=== PATIENT | male | born 1940 | race Caucasian/White ===

== ENCOUNTER 2018-01-12 06:34 | Day surgery (SDC) | payer OTHER ==
[2018-01-12] MEDS ORDERED: SIMETHICONE 40MG/0.6ML DROPS 30ML As Ordered (06:58)
[2018-01-12] MEDS ORDERED: NS 1,000 ML IV (07:45)
[2018-01-12] MEDS ORDERED: LIDOCAINE 2% INJ 100 MG/5 ML SDV (FOR ANES.) As Ordered (07:50)
[2018-01-12] MEDS ORDERED: PROPOFOL 200 MG/20 ML VIAL As Ordered ×3 (07:50)
== END 2018-01-12 08:30 | disposition home or self-care (01) ==
LOC: M OPP 06:34
DX: Z12.11 Encounter for screening for malignant neoplasm of colon (principal); Z86.010 Personal history of colon polyps; K57.30 Diverticulosis of large intestine without perforation or abscess without bleeding; K64.8 Other hemorrhoids
CPT/HCPCS: G0105

== ENCOUNTER → 2018-03-18 | Outpatient (CLI) | payer MEDICARE ==
[~2018-03-18] MED LIST: /AUGM875TA; AMLO10TA5 PO; ANTI50TA; ASPI1TAB PO; ATEN50TA2 PO; BABY81CH; BENA20TA8 PO; MIRA3350 PO; NIAC500T; PRAV40TA2 PO; SIMV80TA; TENO50TA
[2018-03-18 18:03] LABS: CALCIUM LEVEL 9.5 MG/DL (8.8-10.2); CREATININE FOR GFR 1.33 MG/DL (0.70-1.30); GLOMERULAR FILTRATION RATE 55.8 (>42); POTASSIUM SERUM 4.6 MEQ/L (3.5-5.1)
[2018-03-18 18:47] LABS: APPEARANCE, URINE CLEAR (CLEAR); BACTERIA, URINE AUTO NEGATIVE (NEGATIVE); BILIRUBIN, URINE AUTO NEGATIVE (NEGATIVE); BLOOD, URINE BLOOD NEGATIVE (NEGATIVE); COLOR, URINE YELLOW (YELLOW); GLUCOSE, URINE (UA) AUTO NEGATIVE (NEGATIVE); KETONE, URINE AUTO NEGATIVE (NEGATIVE); LEUKOCYTE ESTERASE, URINE AUTO NEGATIVE (NEGATIVE); NITRITE, URINE AUTO NEGATIVE (NEGATIVE); PROTEIN, URINE AUTO NEGATIVE (NEGATIVE); RBC, URINE AUTO 1 /HPF (0-3); SPECIFIC GRAVITY URINE AUTO 1.014 (1.002-1.035); SQUAMOUS EPITHELIAL CELL UR AU 0 /HPF (0-6); UROBILINOGEN, URINE AUTO 0.2 mg/dL (0.0-2.0); WBC, URINE AUTO 0 /HPF (0-3)
== END ==
LOC: M SMT 15:06
PROVIDERS: ATTEND Nurse Practitioner Family
DX: R31.0 Gross hematuria (principal)
CPT/HCPCS: 36415; 80048; 81001; 87086; 88108; G0463

== ENCOUNTER → 2018-03-26 | Outpatient (CLI) | payer MEDICARE ==
[~2018-03-26] MED LIST changes: +ISOVUE-370 76% 100ML VIAL (Q9967) As Ordered ONE
--- NOTE | 2018-03-26 10:47 | REP ---
CT UROGRAPHY WITHOUT AND WITH IV CONTRAST: HISTORY: Gross hematuria. No comparison study. CT CONTRAST DOSE: 100 mL of intravenous Isovue [address] FINDINGS: Preliminary digital consumer loan manager radiograph demonstrates a normal bowel gas pattern. The lung base demonstrates mild bibasilar interstitial fibrosis. Lung zimmerman are otherwise clear in the bases. No pleural effusion or upper abdominal ascites seen. The liver and spleen are normal in size homogeneous in texture. There are bilateral renal cysts noted. There is a small lower pole cyst in the left kidney measuring 13 mm in diameter. There are two cysts in the right kidney. In the upper pole there is a simple cyst measuring 4.6 cm in diameter. In the lower pole contains a large simple cyst which measures 12.8 x 12.0 x 10.0 cm. No abnormal cyst wall calcification or enhancement is seen in any of these. There is no evidence of hydronephrosis or intrarenal calculus on either side. No retroperitoneal mass or adenopathy is seen. No pancreatic abnormality is noted. No abnormalities noted in the gallbladder. Small and large intestinal bowel loops are normal in the upper abdomen. The appendix is surgically absent. The prostate is moderately enlarged and there is mild diffuse bladder wall thickening. No bladder mass lesion is evident. No pelvic adenopathy is observed. No abdominal wall defect is seen. Bone window settings show no bony destructive lesion. Three-dimensional CT urography reconstructed images show no abnormality. No filling defect is seen in the collecting system of either kidney on delayed scan images. The ureters describe a normal course to the bladder. IMPRESSION: Multiple renal cysts including a very large cyst in the lower pole right kidney as described above. Enlarged prostate. Mild bladder wall thickening. Otherwise negative. Electronically Signed by Kirill Adair MD 03/26/2018 04:19 P
== END ==
LOC: M RAD 08:19
PROVIDERS: ATTEND Nurse Practitioner Family
DX: N28.1 Cyst of kidney, acquired (principal); N40.1 Benign prostatic hyperplasia with lower urinary tract symptoms; R31.0 Gross hematuria
CPT/HCPCS: 74178; Q9967

== ENCOUNTER → 2020-02-06 | Outpatient (CLI) | payer SELFPAY ==
[~2020-02-06] MED LIST changes: -AMLO10TA5 PO; +AMLO1TAB25 PO; -ASPI1TAB PO; +ASPI81TA26 PO; -ISOVUE-370 76% 100ML VIAL (Q9967) As Ordered ONE
== END ==
LOC: M LABSMTC 13:54
PROVIDERS: ATTEND Pediatrics
DX: Z20.828 Contact with and (suspected) exposure to other viral communicable diseases (principal)

== ENCOUNTER → 2021-04-19 | Outpatient (REF) | payer MEDICARE ==
[~2021-04-19] MED LIST changes: +BENA-8 PO; -BENA20TA8 PO
== END ==
LOC: M LAB REF 11:57
PROVIDERS: ATTEND Internal Medicine
DX: I12.9 Hypertensive chronic kidney disease with stage 1 through stage 4 chronic kidney disease, or unspecified chronic kidney disease (principal)

== ENCOUNTER → 2023-08-04 | Outpatient (CLI) | payer MEDICARE | LOC: M WHC 08:40 | PROVIDERS: ATTEND Internal Medicine | DX: Z12.31 Encounter for screening mammogram for malignant neoplasm of breast (principal); N62 Hypertrophy of breast | CPT/HCPCS: 77066; G0279 ==